=== PATIENT | female | born 1985 | race African-American/Black ===

== ENCOUNTER 2019-11-29 18:59 | Emergency (ER) | payer MEDICAID ==
[~2019-11-29] VITALS: Ht 162.6 cm; Wt 71.5 kg
[2019-11-29] MEDS ORDERED: IBUPROFEN 600MG TABLET PO ONE (22:45)
[2019-11-29 23:56] VITALS: BP 119/79
== END 2019-11-29 23:56 | disposition home or self-care (01) ==
LOC: ER 18:59
DX: J06.9 Acute upper respiratory infection, unspecified (principal)
CPT/HCPCS: 71045; 99283